=== PATIENT | female | born 1990 | race Caucasian/White ===

== ENCOUNTER 2022-01-22 00:51 | Inpatient (IN) ==
[2022-01-22] MEDS ORDERED: OXYTOCIN 30 UNITS/500 ML BAG IV PRN ×2 (01:57→11:48)
--- NOTE | 2022-01-22 02:00 | History & Physical Report ---
Date of Service January 22, 2022 Assessment & Plan (1) with 38 completed weeks gestation: (2) PROM (premature rupture of membranes): Plan: admit, prom, gbs neg. fetus category one. Starting to have some contractions. Would like expectant management for now. Discussed addition of pit if no progress in 6-8 hours and why. they are agreeable. Anticipate . History of Present Illness Chief Complaint: rom Primary Care Provider: Peggy Field Patient is a 31yowf with iup at 38 6/7 weeks who presents to labor and delivery with rom. Patient notes she had called the office earlier in the day with cramping. Notes large gush of fluid , pink tinged, and constant leaking since about 11:30. Has noted some stronger contractions since then. +fm. and Delivery Plans COVID POSTIIVE 07/29/21 (SX STARTED 07/26/21) s/p moderna Anemia in *HEME consult--> starting b12 injections and iron infusions OB Labs: Blood Type A Positive 06/11/21 Antibody Screen NEGATIVE 06/11/21 Hemoglobin 10.7 g/dL (12.0-16.0) L 11/14/21 Hematocrit 30.7 % (37-47) L 11/01/21 Mean Corpuscular Volume 86.7 fL (80-100) 06/11/21 Platelet Count 380 K/uL (130-400) 06/11/21 Rubella IgG Antibody Immune (Immune) 06/11/21 Rapid Plasma Reagin Nonreactive (Nonreactive) 06/11/21 Hepatitis B Surface Antigen Neg (Neg) 06/11/21 HIV (1&2) Ab and P24 Ag, 4th Gener Neg (Neg) 06/11/21 Glucose 1 Hour 50 gm Load 134 mg/dl (70-130) H 11/01/21 OB Optional Labs: Chlamydia trachomatis RNA NOT DETECTED (NOT DETECTED) 06/11/21 Neisseria gonorrhoeae RNA NOT DETECTED (NOT DETECTED) 06/11/21 Labs Reviewed: Declines csf/sma--mln Declines cfdna--mln hep c neg gbs neg Allergies Allergy/AdvReac Type Severity Reaction Status Date / Time amoxicillin Allergy severe rash Verified 01/16/22 16:17 Home Medications Medication Instructions Recorded Confirmed Type prenat.vits,marisol,ljq-dcfo-debfw 1 tab PO DAILY 06/07/21 01/22/22 History breast pump #1 ea 11/29/21 01/16/22 Rx Patient History Medical History Anemia Migraine Surgical History [place] teeth extracted Family History Father Glioblastoma Other Dyslipidemia Hypertension Thyroid disease Social History Smoking Status: Never smoker Hx Alcohol Use: No Hx Substance Use: No Preferred Language: Scottish 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 Other Information That Helps Us Care for You: No Feels Safe at Home: No Is there a partner from a previous relationship who is making you feel unsafe now?: No Any Concerns about Your Family Situation: No Would You Like to Speak to Someone About Your Situation: No Safety Concerns: Feels Safe At This Time Assistive Devices: None OB History g1--current [employer]PER[employer] History noncontributory Physical Exam Constitutional: WD/WN, vitals as above Gastrointestinal (Abdomen): soft, gravid, nt Psychiatric: A+Ox3, euthymic affect Genitourinary: sse x 2--first neg fern/nitrazine, small pool, second +n itrazine, visible lof from the vagina cx--1/75/-2 to right toco--q2-4min efm--140s with mod varibility, accels to 160s, no decels Results & Data ([facility]) Vital Signs (Past 12 Hours) Vital Signs Temp Pulse Resp BP 01/22/22 01:12 36.6 C 18 01/22/22 01:05 79 132/72 Coding Level of Care Code None Diagnoses with 38 completed weeks gestation Z3A.38 PROM (premature rupture of membranes) O42.90
[2022-01-22 02:41] LABS: Hematocrit (blood only) 35.7 % (37-47); Hemoglobin 11.9 g/dL (12.0-16.0); Mean Corpuscular Hemoglobin 29.2 pg (25-34); Mean Corpuscular Hgb Conc 33.3 g/dL (32-36); Mean Corpuscular Volume 87.7 fL (80-100); Mean Platelet Volume 9.4 fL (7.4-10.4); Platelet Count 270 K/uL (130-400); RDW Coefficient of Variation 12.7 % (11.5-14.5); RDW Standard Deviation 41.3 fL (36.4-46.3); Red Blood Count 4.07 M/uL (4.2-5.4); White Blood Count 9.26 K/uL (4.8-10.8)
[2022-01-22] MEDS: LACTATED RINGER'S 1,000 ML IV PRN ×2 (04:35→07:47)
[2022-01-22] MEDS ORDERED: BUPIVACAINE 0.25% 30 ML VIAL ONE (04:37)
[2022-01-22] MEDS ORDERED: fentaNYL citrate 100 MCG/2 ML VIAL ONE (04:37)
[2022-01-22] MEDS ORDERED: SODIUM CHLORIDE 0.9% INJ 10 ML VIAL ONE (04:37)
[2022-01-22] MEDS ORDERED: ePHEDrine sulfate 50 MG/ML AMP ONE (04:37)
[2022-01-22] MEDS ORDERED: NALBUPHINE HCL INJ 10 MG/ML AMP IV PRN (04:48)
[2022-01-22] MEDS ORDERED: ePHEDrine sulfate 50 MG/ML AMP IV PRN (04:48)
[2022-01-22] MEDS ORDERED: NALOXONE HCL 0.4 MG/1 ML VIAL/CARP IV PRN (04:48)
[2022-01-22] MEDS ORDERED: diphenhydrAMINE 50 MG/ML VIAL IV PRN (04:48)
[2022-01-22] MEDS ORDERED: fentaNYL 2MCG/ML ROPIVACAINE 1.25MG/ML 100 ML BAG EPI PRN (04:48)
[2022-01-22] MEDS ORDERED: NALOXONE HCL 1 MG in SODIUM CHLORIDE 0.9% 1000ML 1,000 ML IV PRN (04:48)
--- NOTE | 2022-01-22 04:48 | Anesthesiology Consultation ---
Date of Service January 22, 2022 Assessment & Plan (1) Encounter for pre-operative examination: Chart Review Chart Review: Acceptable Risk for Surgery and Patient NOT seen in Pre Admission Testing Consults Requested none History Height/Weight Height: 5 ft 3 in Weight: 78.925 kg Allergies Allergy/AdvReac Type Severity Reaction Status Date / Time amoxicillin Allergy severe rash Verified 01/16/22 16:17 Medications Home Medications Medication Instructions Recorded Confirmed Last Taken prenat.vits,marisol,gyb-nzrl-uwyxa 1 tab PO DAILY 06/07/21 01/22/22 01/21/22 0800 breast pump #1 ea 11/29/21 01/16/22 Unknown Active Medications Generic Name Dose Route Start Last Admin Trade Name Freq PRN Reason Stop Dose Admin Lactated Ringer's 1,000 mls @ 125 mls/hr 01/22/22 01:57 01/22/22 04:35 Lr IV 01/24/22 01:56 125 mls/hr .Q8H PRN Administration L&D Protocol Protocol Past Medical History Medical History Anemia Migraine Past Family History Family History Father Glioblastoma Other Dyslipidemia Hypertension Thyroid disease Past Surgical History Surgical History [place] teeth extracted Social History Smoking Status: Never smoker Hx Alcohol Use: No Hx Substance Use: No Physical Exam Vital Signs Last Vital Signs Temp 98.2 F 01/22/22 03:20 Pulse 89 01/22/22 04:46 Resp 20 01/22/22 03:20 BP 132/72 01/22/22 01:05 Pulse Ox 96 01/22/22 04:46 Testing Laboratory Results 01/22/22 02:08
[2022-01-22] MEDS ORDERED: LIDOCAINE 2%/EPINEPHRINE 1:200,000 20 ML SDV ONE (04:57)
--- NOTE | 2022-01-22 06:55 | Labor Progress Brief Note ---
Date of Service January 22, 2022 Subjective She is comfortable after epidural Assessment & Plan (1) PROM (premature rupture of membranes): (2) with 38 completed weeks gestation: Plan: category one, continue current management as making change. Add pit if ctx space or no change. anticipate . Admission and Anticipated Discharge Date Admission Date: January 22, 2022 Physical Exam Physical Exam: cx--4/-2 toco--q2-4min efm--140s with mod variability, accels to 170s, no decels Results & Data ([facility]) Vital Signs (Past 12 Hours) Vital Signs Temp Pulse Resp BP Pulse Ox 01/22/22 06:51 102 H 96 01/22/22 06:46 104 H 94 01/22/22 06:45 94 H 130/69 01/22/22 06:41 104 H 97 01/22/22 06:36 89 93 01/22/22 06:35 93 H 93 01/22/22 06:31 82 96 01/22/22 06:30 86 119/58 L 94 01/22/22 06:26 87 93 01/22/22 06:25 98 H 93 01/22/22 06:21 100 H 93 01/22/22 06:20 105 H 94 01/22/22 06:16 94 H 126/83 94 01/22/22 06:14 87 94 01/22/22 06:11 78 94 01/22/22 06:09 86 94 01/22/22 06:06 94 H 96 01/22/22 06:01 101 H 18 95 01/22/22 05:59 102 H 126/62 01/22/22 05:57 96 H 94 01/22/22 05:56 107 H 95 01/22/22 05:51 107 H 95 01/22/22 05:50 88 93 01/22/22 05:46 98 H 126/68 94 01/22/22 05:45 18 01/22/22 05:44 95 H 93 01/22/22 05:41 94 H 96 01/22/22 05:36 100 H 95 01/22/22 05:35 102 H 18 93 01/22/22 05:31 93 H 18 95 01/22/22 05:29 36.6 C 89 94 01/22/22 05:28 86 119/59 L 01/22/22 05:26 88 114/56 L 94 01/22/22 05:25 18 01/22/22 05:24 90 114/60 94 01/22/22 05:22 91 H 115/59 L 01/22/22 05:21 91 H 95 01/22/22 05:20 107 H 18 115/57 L 01/22/22 05:19 90 93 01/22/22 05:18 92 H 108/56 L 01/22/22 05:16 100 H 96 01/22/22 05:15 95 H 110/70 01/22/22 05:13 104 H 92 01/22/22 05:11 96 H 96 01/22/22 05:06 103 H 96 01/22/22 05:01 112 H 97 01/22/22 05:00 100 H 93 01/22/22 04:56 100 H 98 01/22/22 04:51 80 99 01/22/22 04:46 89 96 01/22/22 04:45 86 93 01/22/22 04:41 82 99 01/22/22 04:36 94 H 97 01/22/22 03:20 36.8 C 20 01/22/22 01:12 36.6 C 18 01/22/22 01:05 79 132/72 Coding Level of Care Code None Diagnoses PROM (premature rupture of membranes) O42.90 with 38 completed weeks gestation Z3A.38
[2022-01-22] MEDS ORDERED: ONDANSETRON INJ 2 MG/ML 2 ML VIAL IV STA (07:49)
[2022-01-22] MEDS ORDERED: ONDANSETRON INJ 2 MG/ML 2 ML VIAL ONE (07:52)
--- NOTE | 2022-01-22 09:42 | Labor Progress Brief Note ---
Date of Service January 22, 2022 Subjective comfortable w/ epidural, starting to have some left hip discomfort Assessment & Plan (1) PROM (premature rupture of membranes): (2) with 38 completed weeks gestation: Plan: 31 y/o G1 admitted w/ srom labor VSS Fetus cat 1 Labor - good progress, continue expectant management GBS neg epidural in place Admission and Anticipated Discharge Date Admission Date: January 22, 2022 Physical Exam Genitourinary: Manual OB Exam: + cervical dilation (9.5), + cervical effacement 90% and + station (0 to +1) OB Exam Monitor Tracing: + external FHT monitor used, + external uterine monitor used (q3) and + category I (130/mod/+accel/-decel) Results & Data ([facility]) Vital Signs (Past 12 Hours) Vital Signs Temp Pulse Resp BP Pulse Ox 01/22/22 09:36 101 H 97 01/22/22 09:31 100 H 94 01/22/22 09:30 107 H 93 01/22/22 09:26 103 H 95 01/22/22 09:21 101 H 97 01/22/22 09:19 103 H 93 01/22/22 09:16 100 H 96 01/22/22 09:14 92 H 114/62 01/22/22 09:11 91 H 97 01/22/22 09:06 109 H 96 01/22/22 09:01 93 H 96 01/22/22 08:59 93 H 100/59 L 01/22/22 08:56 101 H 95 01/22/22 08:51 94 H 96 01/22/22 08:50 106 H 100/55 L 01/22/22 08:46 108 H 95 01/22/22 08:44 92 H 110/56 L 01/22/22 08:41 88 94 01/22/22 08:38 104 H 94 01/22/22 08:36 90 92 01/22/22 08:31 95 H 90 01/22/22 08:29 91 H 106/56 L 01/22/22 08:26 93 H 93 01/22/22 08:21 86 91 01/22/22 08:16 88 91 01/22/22 08:15 90 106/56 L 01/22/22 08:11 88 91 01/22/22 08:06 97 H 95 01/22/22 08:02 97 H 94 01/22/22 08:01 89 92 01/22/22 07:59 91 H 102/57 L 01/22/22 07:56 97 H 95 01/22/22 07:51 97 H 94 01/22/22 07:46 103 H 96 01/22/22 07:44 91 H 96/51 L 01/22/22 07:43 105 H 94 01/22/22 07:41 106 H 96 01/22/22 07:37 104 H 92 01/22/22 07:36 95 H 96 01/22/22 07:31 94 H 94 01/22/22 07:29 108 H 103/55 L 01/22/22 07:26 119 H 96 01/22/22 07:21 107 H 95 01/22/22 07:20 105 H 94 01/22/22 07:16 105 H 95 01/22/22 07:14 97.9 F 96 H 18 113/61 95 01/22/22 07:11 104 H 95 01/22/22 07:06 100 H 95 01/22/22 07:05 105 H 94 01/22/22 07:01 109 H 116/64 96 01/22/22 07:00 113 H 94 01/22/22 06:56 109 H 94 01/22/22 06:55 118 H 91 01/22/22 06:51 102 H 96 01/22/22 06:46 104 H 94 01/22/22 06:45 94 H 130/69 01/22/22 06:41 104 H 97 01/22/22 06:36 89 93 01/22/22 06:35 93 H 93 01/22/22 06:31 82 96 01/22/22 06:30 86 119/58 L 94 01/22/22 06:26 87 93 01/22/22 06:25 98 H 93 01/22/22 06:21 100 H 93 01/22/22 06:20 105 H 94 01/22/22 06:16 94 H 126/83 94 01/22/22 06:14 87 94 01/22/22 06:11 78 94 01/22/22 06:09 86 94 01/22/22 06:06 94 H 96 01/22/22 06:01 101 H 18 95 01/22/22 05:59 102 H 126/62 01/22/22 05:57 96 H 94 01/22/22 05:56 107 H 95 01/22/22 05:51 107 H 95 01/22/22 05:50 88 93 01/22/22 05:46 98 H 126/68 94 01/22/22 05:45 18 01/22/22 05:44 95 H 93 01/22/22 05:41 94 H 96 01/22/22 05:36 100 H 95 01/22/22 05:35 102 H 18 93 01/22/22 05:31 93 H 18 95 01/22/22 05:29 97.9 F 89 94 01/22/22 05:28 86 119/59 L 01/22/22 05:26 88 114/56 L 94 01/22/22 05:25 18 01/22/22 05:24 90 114/60 94 01/22/22 05:22 91 H 115/59 L 01/22/22 05:21 91 H 95 01/22/22 05:20 107 H 18 115/57 L 01/22/22 05:19 90 93 01/22/22 05:18 92 H 108/56 L 01/22/22 05:16 100 H 96 01/22/22 05:15 95 H 110/70 01/22/22 05:13 104 H 92 01/22/22 05:11 96 H 96 01/22/22 05:06 103 H 96 01/22/22 05:01 112 H 97 01/22/22 05:00 100 H 93 01/22/22 04:56 100 H 98 01/22/22 04:51 80 99 01/22/22 04:46 89 96 01/22/22 04:45 86 93 01/22/22 04:41 82 99 01/22/22 04:36 94 H 97 01/22/22 03:20 98.2 F 20 01/22/22 01:12 97.9 F 18 01/22/22 01:05 79 132/72 Coding Level of Care Code None Diagnoses PROM (premature rupture of membranes) O42.90 with 38 completed weeks gestation Z3A.38
--- NOTE | 2022-01-22 11:33 | Delivery Summary ---
Vaginal Delivery Summary Date of Service January 22, 2022 Vaginal Delivery Summary and 2nd Degree LAC PREOPERATIVE DIAGNOSIS: 1. Single intrauterine at 38 6/7 wga 2. SROM/labor 3. Anemia POSTOPERATIVE DIAGNOSIS: 1. Single intrauterine at 38 6/7 wga 2. SROM/labor 3. Anemia 4. Delivered PROCEDURE: 1. Normal spontaneous vaginal delivery. SURGEON: Terri Serrano MD ANESTHESIA: Epidural. ESTIMATED BLOOD LOSS: 400 mL FLUIDS: Continuous LR. URINE OUTPUT: None. COMPLICATIONS: None. CONDITION: Stable. INDICATIONS: 31 y/o G1 at 38 6/7 wga presented this AM with ROM and laboring. She was 1cm on arrival and continued to progress spontaneously. She received an epidural for pain control and continued to progress well to complete and desired to push. FINDINGS: A viable female , weight pending with Apgars of 9 and 9 at 1 and 5 minutes respectively. SPECIMEN: Cord blood OPERATIVE REPORT: The patient progressed to 10 cm, 100% effaced and +2 station, pushed over intact perineum with anesthesia to deliver a viable female infant, weight and Apgars as above. Head of delivered in DARRON position. No nuchal cord was present. Body and shoulders were delivered without difficulty. was delivered to maternal abdomen and nursing staff. Delayed cord clamping was performed for 60 seconds. Cord was clamped and cut. Cord blood was obtained. Placenta delivered spontaneously intact with 3-vessel cord. IV oxytocin and fundal massage were given for excellent hemostasis. Vagina, cervix, perineum, and placenta were inspected. A left vaginal/labial laceration leading into a deep second degree laceration was noted and repaired using 3-0 vicryls. A figure of eight stitch was placed at the introitus to secure a vessel that was bleeding. There was then excellent hemostasis. Rectal exam was performed and confirmed no stitches in the vagina. Sponge and needle counts correct x2. No sponges were left behind. Mother and stable in immediate period. [facility] Vaginal Delivery Charge Vaginal Delivery Codes: 81813 global code for the antepartum, delivery, and post- Delivery Type Details: and 2nd Degree LAC
[2022-01-22] MEDS ORDERED: BENZOCAINE 20% AER SPR 82.5 GM CAN EXT PRN (11:48)
[2022-01-22] MEDS ORDERED: bisacodyL 10 MG SUPP PR PRN (11:48)
[2022-01-22] MEDS ORDERED: ACETAMINOPHEN 325 MG TAB PO PRN (11:48)
[2022-01-22] MEDS ORDERED: HYDROCORTISONE ACETATE 25 MG SUPP PR PRN (11:48)
[2022-01-22] MEDS ORDERED: DIPHTHERIA/TETANUS/PERTUSSIS 0.5 ML SYR/VIAL IM ONE (11:48)
--- NOTE | 2022-01-22 12:40 | Anesthesiology Progress Note ---
Date of Service January 22, 2022 Anesthesia Post Procedure Vital Signs Vital Signs: Temp Pulse Resp BP Pulse Ox 01/22/22 12:29 93 H 107/60 01/22/22 12:16 84 110/55 L 01/22/22 12:14 95 H 18 89/64 L 01/22/22 11:59 83 18 107/59 L 01/22/22 11:44 85 18 114/55 L 01/22/22 11:29 91 H 18 117/57 L 01/22/22 11:26 91 H 95 01/22/22 11:21 89 95 01/22/22 11:16 97 H 96 01/22/22 11:14 90 123/61 01/22/22 11:11 99 H 95 01/22/22 11:06 107 H 96 01/22/22 11:01 98 H 94 01/22/22 10:59 99 H 118/55 L 94 01/22/22 10:56 110 H 96 01/22/22 10:51 111 H 89 L 01/22/22 10:46 112 H 96 01/22/22 10:45 119 H 94 01/22/22 10:41 109 H 94 01/22/22 10:40 120 H 89 L 01/22/22 10:36 114 H 83 L 01/22/22 10:32 115 H 90 01/22/22 10:31 101 H 96 01/22/22 10:30 99 H 120/62 01/22/22 10:26 111 H 97 01/22/22 10:25 105 H 93 01/22/22 10:21 107 H 97 01/22/22 10:16 115 H 96 01/22/22 10:14 114 H 107/68 01/22/22 10:13 111 H 92 01/22/22 10:11 116 H 97 01/22/22 10:06 117 H 96 01/22/22 10:01 111 H 98 01/22/22 09:59 111 H 117/56 L 01/22/22 09:56 111 H 96 01/22/22 09:51 104 H 97 01/22/22 09:46 103 H 96 01/22/22 09:44 103 H 119/59 L 01/22/22 09:41 104 H 96 01/22/22 09:36 101 H 97 01/22/22 09:31 100 H 94 07/06/22 09:30 107 H 93 01/22/22 09:26 103 H 95 01/22/22 09:21 101 H 97 01/22/22 09:19 103 H 93 01/22/22 09:16 100 H 96 01/22/22 09:14 92 H 114/62 01/22/22 09:11 91 H 97 01/22/22 09:06 109 H 96 01/22/22 09:01 93 H 96 01/22/22 08:59 93 H 100/59 L 01/22/22 08:56 101 H 95 01/22/22 08:51 94 H 96 01/22/22 08:50 106 H 100/55 L 01/22/22 08:46 108 H 95 01/22/22 08:44 92 H 110/56 L 01/22/22 08:41 88 94 01/22/22 08:38 104 H 94 01/22/22 08:36 90 92 01/22/22 08:31 95 H 90 01/22/22 08:29 91 H 106/56 L 01/22/22 08:26 93 H 93 01/22/22 08:21 86 91 01/22/22 08:16 88 91 01/22/22 08:15 90 106/56 L 01/22/22 08:11 88 91 01/22/22 08:06 97 H 95 01/22/22 08:02 97 H 94 01/22/22 08:01 89 92 01/22/22 07:59 91 H 102/57 L 01/22/22 07:56 97 H 95 01/22/22 07:51 97 H 94 01/22/22 07:46 103 H 96 01/22/22 07:44 91 H 96/51 L 01/22/22 07:43 105 H 94 01/22/22 07:41 106 H 96 01/22/22 07:37 104 H 92 01/22/22 07:36 95 H 96 01/22/22 07:31 94 H 94 01/22/22 07:29 108 H 103/55 L 01/22/22 07:26 119 H 96 01/22/22 07:21 107 H 95 01/22/22 07:20 105 H 94 01/22/22 07:16 105 H 95 01/22/22 07:14 36.6 C 96 H 18 113/61 95 01/22/22 07:11 104 H 95 01/22/22 07:06 100 H 95 01/22/22 07:05 105 H 94 01/22/22 07:01 109 H 116/64 96 01/22/22 07:00 113 H 94 01/22/22 06:56 109 H 94 01/22/22 06:55 118 H 91 01/22/22 06:51 102 H 96 01/22/22 06:46 104 H 94 01/22/22 06:45 94 H 130/69 01/22/22 06:41 104 H 97 01/22/22 06:36 89 93 01/22/22 06:35 93 H 93 01/22/22 06:31 82 96 01/22/22 06:30 86 119/58 L 94 01/22/22 06:26 87 93 01/22/22 06:25 98 H 93 01/22/22 06:21 100 H 93 01/22/22 06:20 105 H 94 01/22/22 06:16 94 H 126/83 94 01/22/22 06:14 87 94 01/22/22 06:11 78 94 01/22/22 06:09 86 94 01/22/22 06:06 94 H 96 01/22/22 06:01 101 H 18 95 01/22/22 05:59 102 H 126/62 01/22/22 05:57 96 H 94 01/22/22 05:56 107 H 95 01/22/22 05:51 107 H 95 01/22/22 05:50 88 93 01/22/22 05:46 98 H 126/68 94 01/22/22 05:45 18 01/22/22 05:44 95 H 93 01/22/22 05:41 94 H 96 01/22/22 05:36 100 H 95 01/22/22 05:35 102 H 18 93 01/22/22 05:31 93 H 18 95 01/22/22 05:29 36.6 C 89 94 01/22/22 05:28 86 119/59 L 06 05:26 88 114/56 L 94 01/22/22 05:25 18 01/22/22 05:24 90 114/60 94 01/22/22 05:22 91 H 115/59 L 01/22/22 05:21 91 H 95 01/22/22 05:20 107 H 18 115/57 L 01/22/22 05:19 90 93 01/22/22 05:18 92 H 108/56 L 01/22/22 05:16 100 H 96 01/22/22 05:15 95 H 110/70 01/22/22 05:13 104 H 92 01/22/22 05:11 96 H 96 01/22/22 05:06 103 H 96 01/22/22 05:01 112 H 97 01/22/22 05:00 100 H 93 01/22/22 04:56 100 H 98 01/22/22 04:51 80 99 01/22/22 04:46 89 96 01/22/22 04:45 86 93 01/22/22 04:41 82 99 01/22/22 04:36 94 H 97 01/22/22 03:20 36.8 C 20 01/22/22 01:12 36.6 C 18 01/22/22 01:05 79 132/72 Transfer of Care Handoff Completed per policy Notes Mental Status: alert / awake / arousable and participated in evaluation Patient Amnestic to Procedure: Yes Nausea / Vomiting: adequately controlled Pain: adequately controlled Airway Patency, RR, SpO2: stable & adequate BP & HR: stable & adequate Hydration State: stable & adequate Anesthetic Complications: no major complications apparent and Pt Satisfied with anesthetic care
[2022-01-22] MEDS: IBUPROFEN 600 MG TAB PO PRN ×2 (14:14→19:12)
[2022-01-23] MEDS: DOCUSATE SODIUM 100 MG CAP PO SCH ×2 (00:49→07:39)
--- NOTE | 2022-01-23 07:04 | Obstetrical Progress Note ---
Date of Service January 23, 2022 Assessment & Plan (1) Encounter for care and examination after delivery: 31 yo PP1 from , doing well -Meeting all pp milestones -A+/rubella immune/ -f/u 6 weeks for appt, desires d/c home today and ok to do so Subjective Ambulation: ambulating normally Voiding: no voiding problems Passing Gas:: Yes Diet Tolerance:: regular diet Lochia:: Small Feeding Type:: breast feeding Pain well managed with medication Review of Systems Denies fevers, chills, n/v, APODACA, CP, SOB Physical Exam Constitutional WD/WN, vitals as above no acute distress Respiratory normal respiratory effort, lungs clear to auscultation Cardiovascular RRR, no murmur, no edema Gastrointestinal (Abdomen) Percussion/Palpation: abdomen soft; abdomen nontender fundus firm at umbilicus and NT Musculoskeletal BLE symmetric, nonerythematous, nontender Results & Data ([facility]) Vital Signs (Past 12 Hours) Vital Signs Temp Pulse Resp BP Pulse Ox 01/23/22 03:45 98.1 F 80 16 114/75 98 01/22/22 23:34 98.6 F 86 20 103/63 98 01/22/22 19:30 98.4 F 86 16 107/68
[2022-01-23] MEDS: IBUPROFEN 600 MG TAB PO PRN (07:39)
[2022-01-23] MEDS ORDERED: FERROUS SULFATE 325 MG TAB PO SCH (08:00)
[2022-01-23] MEDS ORDERED: PRENATAL VITAMIN 1 TAB PO SCH (08:00)
[2022-01-23] MEDS ORDERED: bisacodyL 5 MG TABEC PO SCH (20:00)
== END 2022-01-23 16:15 | disposition home or self-care (01) | DRG 807 ==
LOC: OPB 00:51 → 4S1 00:55 → 4E2 13:22